=== PATIENT | male | born 1955 | race Caucasian/White ===

== ENCOUNTER → 2017-04-06 | Outpatient (CLI) | payer BC, OTHER ==
--- NOTE | ~2017-04-06 | 24HR ---
[address] [address] [place] [address] 24 HR ELECTROCARDIOGRAM REPORT Name: BEVERLYRENA Cox Room #: REG [facility]#: [id number] Admission: 04/06/17 Attend Phys: Tad Segovia MD Discharge: Date of : 55 Date of Service: 04/06/171434 Report #: [id number] THIS REPORT FOR: //name// [facility] Test Date: 2017-04-06 Test Time: 14:35:00 Pat Name: RENA PAUL Department: Room: Gender: Leasing Representative: : 1955 Requested By: Tad Segovia Order Number: [id number] Cruzito BROWNING: Interpretive Statements [email or web address] [email or web address] 34 34 Epiphany EpiphanyMD /EPI
== END ==
LOC: CV 04-05 11:02
DX: R00.1 Bradycardia, unspecified (principal)